=== PATIENT | male | born 1945 | race Caucasian/White ===

== ENCOUNTER → 2017-05-25 | Outpatient (CLI) | payer MEDICARE, OTHER ==
--- NOTE | 2017-05-25 15:24 | CT ---
EXAM DESCRIPTION: Head: Computed Tomography. CLINICAL HISTORY: HEADACHE COMPARISON: CT head December 31, 2010. TECHNIQUE: Non-helical axial scans through the skull and brain, at 2.5 mm intervals, non-contrast. Coronal and sagittal 2.0 mm reconstructions. Total Exam DLP: 752.48 mGy-cm. This exam was performed according to our departmental dose-optimization program which includes automated exposure control, adjustment of the mA and/or kV according to patient size and/or use of iterative reconstruction technique; to reduce radiation dose to as low as reasonably achievable (ALARA). FINDINGS: No hemorrhage, no mass-effect, and no midline shift. Minimal low-density bilateral periventricular white matter. No abnormal radiodense material in the brain parenchyma. Vascular calcifications anterior; physiologic calcifications in the pineal gland and choroid plexus. No effacement or displacement of the ventricles, CSF spaces, or subdural spaces. No extra axial fluid collection or hemorrhage. No gross abnormalities of the bony calvarium. Included paranasal sinuses and mastoid air cells are well - aerated. IMPRESSION: 1. No hemorrhage, no mass effect, no midline shift. Minimal also density in the periventricular white matter could be age-related and/or mild cerebral microvascular disease. 2. CT scans are insensitive for detecting small CVAs in the first 24 hours after onset. Evaluation of the brain stem is also limited. If symptoms persist, consider nonemergent MRI scan of the brain with diffusion imaging. Electronically signed by: Pio Saini MD 05/25/2017 3:23 PM CDT
== END | disposition home or self-care (01) ==
LOC: CT 10:31
PROVIDERS: ATTEND Family Medicine
DX: R51 Headache (principal)

== ENCOUNTER → 2018-09-06 | Outpatient (CLI) | payer MEDICARE, OTHER | LOC: GMAH 10:54 | PROVIDERS: ATTEND Family Medicine | DX: Z12.5 Encounter for screening for malignant neoplasm of prostate (principal); R30.0 Dysuria; I10 Essential (primary) hypertension; E78.2 Mixed hyperlipidemia; E11.9 Type 2 diabetes mellitus without complications; R42 Dizziness and giddiness; R01.1 Cardiac murmur, unspecified; I70.213 Atherosclerosis of native arteries of extremities with intermittent claudication, bilateral legs ==

== ENCOUNTER 2019-06-19 05:38 | Day surgery (SDC) | payer MEDICARE, OTHER ==
[2019-06-19] MEDS ORDERED: LACTATED RINGERS 1,000 ML ONE (08:09)
[2019-06-19] MEDS ORDERED: SODIUM CHL 0.9% 100ML MINI-BAG 100 ML IVPB ONE (08:09)
[2019-06-19] MEDS ORDERED: ceFAZolin SODIUM 1 GM VIAL ONE ×2 (08:09→08:47)
[2019-06-19] MEDS ORDERED: BUPIVACAINE 0.25% INJ 30 ML VIAL INJ ONE ×2 (08:47→09:21)
[2019-06-19] MEDS ORDERED: LIDOCAINE 1% 10 ML VIAL INJ ONE ×3 (08:48→10:00)
[2019-06-19] MEDS ORDERED: VANCOMYCIN HCL INJ 1,000 MG VIAL IVPB ONE ×2 (08:48→09:21)
[2019-06-19] MEDS ORDERED: MIDAZOLAM INJ 2 MG/2 ML VIAL ONE (09:11)
[2019-06-19] MEDS ORDERED: fentaNYL CITRATE INJ 50 MCG/ML 2 ML AMP ONE (09:11)
[2019-06-19] MEDS ORDERED: ceFAZolin SODIUM 1 GM VIAL INJ ONE (09:21)
[2019-06-19] MEDS ORDERED: PROPOFOL 200 MG/20 ML VIAL IV ONE (10:00)
[2019-06-19 10:58] VITALS: BP 150/70; TEMP 97.3; O2SAT 95
--- NOTE | 2019-06-20 08:05 | OP ---
DATE OF PROCEDURE: 06/19/19 PREOPERATIVE DIAGNOSIS: 1. Right carpal tunnel syndrome. POSTOPERATIVE DIAGNOSIS: 1. Right carpal tunnel syndrome. PROCEDURE: 1. Right carpal tunnel release. SURGEON: Tony Carter MD. NAILHEAD OPERATOR: Pio Pierce CST, SA-C. ANESTHESIA: Local with sedation. COMPLICATIONS: None. FINDINGS: Narrowing of the median nerve across the carpal tunnel and thickening of the transverse carpal ligament. INDICATION: Mr. Nava has a history of pain and numbness in the affected extremity. He had ongoing symptoms which have been refractory to conservative measures. After discussing the risks, benefits and alternatives to operative therapy, the patient has given informed consent for carpal tunnel release. PROCEDURE: The patient was brought to the Operating Room and placed in the supine position. Sedation was administered and local anesthetic was injected into the operative area under sterile conditions. After the injection of anesthetic, the arm was sterilely prepped and draped. A longitudinal incision was made directly overlying the transverse carpal ligament and blunt dissection was carried down to the ligament. The transverse carpal ligament was sharply transected along its length and a [place] elevator was used to ensure complete release of the ligament. Once release had been confirmed, the wound was thoroughly irrigated and the wound was closed with Nylon suture. A sterile dressing was placed and the patient was taken to the Day Surgery Unit. POSTOPERATIVE PLAN: The patient has been encouraged to do range of motion of the digits and will followup with us in two days. #[id number] [facility]
== END 2019-06-19 10:50 | disposition home or self-care (01) ==
LOC: AMB 05:38
PROVIDERS: ATTEND Orthopaedic Surgery
DX: G56.01 Carpal tunnel syndrome, right upper limb (principal); I10 Essential (primary) hypertension; E66.9 Obesity, unspecified; Z79.899 Other long term (current) drug therapy
CPT/HCPCS: 01810; 36416; 64721; 80307; 82948; 87070; J0690; J2250; J3010; J3370; J3490; J7050; J7120

== ENCOUNTER → 2020-01-08 | Outpatient (CLI) | payer MEDICARE, OTHER | LOC: GMA MATASK 14:43 | PROVIDERS: ATTEND Family Medicine | DX: N40.0 Benign prostatic hyperplasia without lower urinary tract symptoms (principal); I10 Essential (primary) hypertension; E11.9 Type 2 diabetes mellitus without complications ==

== ENCOUNTER 2020-03-28 09:10 | Emergency (ER) | payer MEDICARE, OTHER ==
--- NOTE | 2020-03-28 09:12 | ED.PDOC ---
History of Present Illness - General Stated Complaint: Dyspnea, hypoxemia Time Seen by Provider: 03/28/20 09:11 Additional Information: Sent in by PCP for reported shortness of breath and low oxygen. Patient had positive Covid test March 24. - History of Present Illness Initial Comments: Patient complains of dyspnea at home associated with low oxygen saturations of about 90% today. Actual range was about 90 to 92% on a home pulse oximeter. He complains of Mild chest pressure. He also Reports runny nose and sore throat with cough for about the last 10 days. No fever or chills. No vomiting or diarrhea. No loss of taste or smell. No neurological changes or stroke symptoms. Blood sugar 298 at home today. Patient was seen by his doctor recently and placed on a prescription of azithromycin. He was also given a s teroid prescription which she has not yet started. Patient was told he had a positive strep test on recent testing. Timing/Duration: 4-6 hours Severity: moderate Improving Factors: rest Worsening Factors: movement - Exertion, other Associated Symptoms: chest pain, cough Allergies/Adverse Reactions: Allergies NO KNOWN ALLERGY Allergy (Verified 03/28/20 09:42) Home Medications: Ambulatory Orders Allopurinol 300 mg PO DAILY 04/26/19 Amitriptyline HCl [Elavil] 1 - 2 mg PO BEDTIME 04/26/19 Aspirin (Buffered) 325 mg [Bufferin 325 mg] 1 ea PO QD 04/26/19 Atorvastatin Calcium [Lipitor] 10 mg PO DAILY 04/26/19 Celecoxib [Celebrex] 200 mg PO BID 04/26/19 Colestipol HCl 1 gm PO DAILY 04/26/19 Gabapentin 600 mg PO TID 04/26/19 Gemfibrozil 600 mg PO DAILY 04/26/19 HYDROcodone 7.5MG/APAP 325MG [[place] 7.5/325] 1 - 2 ea PO TID PRN 04/26/19 Losartan Potassium 50 mg PO BID 04/26/19 Metoprolol Tartrate 50 mg PO BID 04/26/19 Niacin 100 mg PO DAILY 04/26/19 Nelson-3 Fatty Acids [Fish Oil] 2,000 mg PO DAILY 04/26/19 Omeprazole 40 mg PO DAILY 04/26/19 Sitagliptin Phosphate [Januvia] 100 mg PO DAILY 04/26/19 Review of Systems - Review of Systems Constitutional: States: weakness - General weakness, fatigue EENTM: States: nose congestion, throat pain Respiratory: States: see HPI, cough, short of breath Cardiology: States: chest pain Gastrointestinal/Abdominal: States: no symptoms reported Genitourinary: States: no symptoms reported Musculoskeletal: States: no symptoms reported Skin: States: no symptoms reported Neurological: States: no symptoms reported Endocrine: States: other - Blood sugar elevated, 298 at home today. Past Medical History (General) - Patient Medical History Hx Cardiac Disorders: Yes Hx Congestive Heart Failure: No Hx Hypertension: Yes Hx Diabetes: Yes - GLUCOSE 86 Hx Gastroesophageal Reflux: Yes Hx Cancer: No Hx Hepatitis C: No Hx MRSA: Yes MRSA Source:: nose - Vaccination History Hx Influenza Vaccination: Yes Hx Pneumococcal Vaccination: No - Social History Hx Tobacco Use: No Hx Alcohol Use: No - Female History Patient : No Family Medical History - Family History Father Family History: Unknown Physical Exam - Physical Exam General Appearance: Alert, Comfortable, No apparent distress Eye Exam: bilateral normal Ears, Nose, Throat: normal pharynx Neck: non-tender, full range of motion Respiratory: chest non-tender, lungs clear Cardiovascular/Chest: normal peripheral pulses, regular rate, rhythm, no edema Gastrointestinal/Abdominal: normal bowel sounds, non tender, soft Back Exam: normal inspection, no vertebral tenderness Extremity: no pedal edema, no calf tenderness Neurologic: alert, normal mood/affect, oriented x 3 Skin Exam: normal color Lymphatic: no adenopathy Progress - Progress Progress: 03/28/20 10:01 Alert and comfortable. SaO2 94% on room air, pulse 70, blood pressure 162/83. 03/28/20 10:29 Monoclonal antibodies Bamlanivimab 700 mg infusion. 03/28/20 10:33 Medical decision makin-year-old male with documented COVID-19 without pneumonia. Patient complains of Dyspnea but does not have significant hypoxemia. He was given IV monoclonal antibodies as adjunctive treatment as an outpatient. Signs and symptoms of need for admission were discussed with the patient in detail. If he becomes acutely dyspneic and hypoxemic he will Return to the emergency department for admission. - Results/Orders Results/Orders: Electrocardiogram: Normal sinus rhythm, 77/min, First-degree AV block without other significant interval abnormalities. No significant STT changes. No ST segment elevation or depression, EXAM DESCRIPTION: Chest,1 View CLINICAL HISTORY: Cough, dyspnea COMPARISON: 23 February 2009, 08 January 2020 TECHNIQUE: AP portable chest FINDINGS: The lungs are clear. There is no infiltrate or effusion. The heart is normal size. IMPRESSION: Normal portable chest Electronically signed by: Varghese Barth MD 03/28/2020 10:01 AM [employer] 03/28/20 09:30 EKG STAT 03/28/20 09:41 CARDIAC ENZYME GROUP Stat COMPLETE METABOLIC PROFILE Stat Laboratory Results - last 24 hr 03/28/20 03/28/20 09:41 09:41 WBC 6.2 RBC 4.01 L Hgb 12.7 L Hct 38.0 L MCV 94.6 H MCH 31.6 H MCHC 33.4 RDW 15.3 H Plt Count 210 MPV 7.2 L Absolute Neuts (auto) 4.90 Absolute Lymphs (auto) 1.10 Absolute Monos (auto) 0.10 L Absolute Eos (auto) 0.00 Absolute Basos (auto) 0.00 Neutrophils % 79.8 H Lymphocytes % 17.1 L Monocytes % 2.0 Eosinophils % 0.3 L Basophils % 0.8 Sodium 136 Potassium 4.8 Chloride 107 Carbon Dioxide 17 L Anion Gap 16.8 BUN 41 H Creatinine 1.48 H BUN/Creatinine Ratio 27.7 H Random Glucose 255 H Serum Osmolality 290.8 Calcium 9.0 Total Bilirubin 0.4 AST 25 ALT 21 Alkaline Phosphatase 53 Creatine Kinase 85 CK-MB (CK-2) 3.3 Troponin I < 0.02 Serum Total Protein 7.6 Albumin 3.8 Globulin 3.8 H Albumin/Globulin Ratio 1.0 L Vital Signs - 24 hr 03/28/20 03/28/20 03/28/20 09:10 09:11 10:27 Temperature 97.3 F L Pulse Rate [ 84 84 71 Pulse ox] Respiratory 18 18 16 Rate Blood Pressure 215/105 162/83 [L arm] O2 Sat by Pulse 98 97 Oximetry Departure - Departure Clinical Impression: COVID-19, Dyspnea, Diabetes Disposition: Discharge to Home or Self Care Condition: Good Departure Forms: ED Discharge - Pt. Copy, Patient Portal Self Enrollment Instructions: Coronavirus Disease 2019 (COVID-19) (DC) Referrals: Zafar Berry MD [Primary Care Provider] - 1-2 Weeks Home Medications: Ambulatory Orders Allopurinol 300 mg PO DAILY 04/26/19 Amitriptyline HCl [Elavil] 1 - 2 mg PO BEDTIME 04/26/19 Aspirin (Buffered) 325 mg [Bufferin 325 mg] 1 ea PO QD 04/26/19 Atorvastatin Calcium [Lipitor] 10 mg PO DAILY 04/26/19 Celecoxib [Celebrex] 200 mg PO BID 04/26/19 Colestipol HCl 1 gm PO DAILY 04/26/19 Gabapentin 600 mg PO TID 04/26/19 Gemfibrozil 600 mg PO DAILY 04/26/19 HYDROcodone 7.5MG/APAP 325MG [[place] 7.5/325] 1 - 2 ea PO TID PRN 04/26/19 Losartan Potassium 50 mg PO BID 04/26/19 Metoprolol Tartrate 50 mg PO BID 04/26/19 Niacin 100 mg PO DAILY 04/26/19 Nelson-3 Fatty Acids [Fish Oil] 2,000 mg PO DAILY 04/26/19 Omeprazole 40 mg PO DAILY 04/26/19 Sitagliptin Phosphate [Januvia] 100 mg PO DAILY 04/26/19 Additional Instructions: Contact your doctor today to see if he feels you need home oxygen or not. Rest and avoid unnecessary exertion. Take the prescription of Steroids prescribed for you by your doctor.If you develop worsening difficulty breathing, partic ularly if the saturation levels are less than 90% then return to the emergency room for possible admission.
--- NOTE | 2020-03-28 10:03 | RAD ---
EXAM DESCRIPTION: Chest,1 View CLINICAL HISTORY: Cough, dyspnea COMPARISON: 23 February 2009, 08 January 2020 TECHNIQUE: AP portable chest FINDINGS: The lungs are clear. There is no infiltrate or effusion. The heart is normal size. IMPRESSION: Normal portable chest Electronically signed by: Varghese Barth MD 03/28/2020 10:01 AM [facility]
[2020-03-28 13:27] VITALS: BP 192/95; TEMP 97.7; O2SAT 97
== END 2020-03-28 13:05 | disposition home or self-care (01) ==
LOC: ER 09:10
DX: U07.1 COVID-19 (principal); E11.9 Type 2 diabetes mellitus without complications; I44.0 Atrioventricular block, first degree; I51.9 Heart disease, unspecified; I10 Essential (primary) hypertension; K21.9 Gastro-esophageal reflux disease without esophagitis; Z79.899 Other long term (current) drug therapy; Z79.82 Long term (current) use of aspirin